=== PATIENT | female | born 1980 | race Caucasian/White ===

== ENCOUNTER 2024-01-15 00:45 | Emergency (ER) | payer MEDICAID ==
[~2024-01-15] VITALS: Ht 157.5 cm; Wt 70.1 kg
[2024-01-15 01:05] VITALS: O2SAT 98
[2024-01-15] MEDS ORDERED: CIPHCO LEFT EAR (02:21)
[2024-01-15 02:52] VITALS: BP 137/89; PULSE 94; RESP 16; TEMP 37.05852; O2SAT 99
[2024-01-15] MEDS: VISCOUS LIDOCAINE 2% 15 ML UDC MM NR (02:52)
== END 2024-01-15 02:54 | disposition home or self-care (01) ==
LOC: ER 01:05
DX: T16.2XXA Foreign body in left ear, initial encounter (principal); W44.F4XA Insect entering into or through a natural orifice, initial encounter
CPT/HCPCS: 69200; 99284